=== PATIENT | male | born 1995 | race Caucasian/White ===

== ENCOUNTER 2017-08-17 02:23 | Emergency (ER) | payer SELFPAY ==
[2017-08-17] VITALS (19 sets, daily range): BP systolic 106–132; BP diastolic 50–79; PULSE 71–110; RESP 12–18; TEMP 36.8; O2SAT 94–100; BMI 24.4
[2017-08-17 03:06] LABS: Differential Indicated MANUAL DIFF; Hematocrit 42.2 % (40-54); Hemoglobin 14.8 g/dl (13.0-16.5); Mean Corp Hgb Conc 35.1 g/gl (32-36); Mean Corpuscular Volume 91.1 fL (80-94); Mean Platelet Vol. 9.6 fl (6.2-12.0); POSITIVE COUNT YES; POSITIVE DIFFERENTIAL NO; POSITIVE MORPHOLOGY YES; Platelet Count 359 K/mm3 (150-450); RBC Distribution Width CV 13.3 % (11.6-14.6); RBC Distribution Width SD 44.1 fl (35.1-43.9); Red Blood Count 4.63 M/mm3 (4.6-6.2); White Blood Count 18.8 K/mm3 (4.4-11.0)
[2017-08-17 03:19] LABS: BUN 24 mg/dL (7-18); Creatinine, Serum 0.82 mg/dL (0.70-1.30); Estimated Creatinine Clearance 132.11 ml/min; Glucose 99 mg/dL (74-106)
[2017-08-17 03:20] LABS: ALB/GLOB Ratio 1.1 RATIO (0.9-2.4); AST(SGOT) 53 U/L (15-37); Alanine Aminotransfer ALT/SGPT 74 U/L (16-61); Albumin, Serum 3.9 g/dL (3.2-5.0); Alkaline Phosphatase 62 U/L (45-117); Anion Gap 18 (5-15); BUN/Creat Ratio 29.2 RATIO (10-20); Calcium,Total 8.8 mg/dL (8.5-10.1); Chloride 104 mmol/L (98-107); EST Glomerular Filtration Rate 125 mL/min (>60); Est Glom Filt Rate - Afr Amer 151 mL/min (>60); Globulin 3.5 g/dL (2.2-4.2); Potassium 3.7 mmol/L (3.5-5.1); Protein, Total 7.4 g/dL (6.4-8.2); Sodium Level 142 mmol/L (136-145)
[2017-08-17 03:44] LABS: Lymphocyte 12 % (19-41); Metamyelocyte 6 % (0-1); Monocyte 4 % (0-10); Neutrophil-Band 1 % (0-5); Neutrophil-Segmented 77 % (47-70); Total Cells Counted 100 (MANUAL DIFF)
[2017-08-17 03:46] LABS: Absolute Lymphocyte Count 2.26 X10^3/ul (0.83-4.51); Absolute Neutrophil Count 15.8 X10^3/uL (2.0-7.7); Lymphocyte # 2.26 X10^3/ul (4.0); Neutrophil # 15.79 X10^3/uL (2.7-7.7)
[2017-08-17 03:47] LABS: Platelet Estimate ADEQUATE (ADEQ); Red Cell Morphology NORM C+C NORMAL (NORM C&C)
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
[2017-08-17 04:40] LABS: Amphetamine Urine VISTA NEGATIVE (<1000 ng/mL); Barbiturate Urine VISTA NEGATIVE (< 200 ng/mL); Benzodiazepine Urine VISTA NEGATIVE (< 200 ng/mL); Cocaine Urine VISTA NEGATIVE (< 300 ng/mL); Ecstacy Urine VISTA NEGATIVE (< 500 ng/mL); Methadone Urine VISTA NEGATIVE (< 300 ng/mL); PCP Urine VISTA NEGATIVE (< 25 ng/mL); THC Urine VISTA NEGATIVE (< 50 ng/mL); Vista UDS pH Range 6
--- NOTE | 2017-08-17 05:55 | EKG12_ITS ---
Test Reason : MENTAL HEALTH Blood Pressure : / mmHG Vent. Rate : 090 BPM Atrial Rate : 090 BPM P-R Int : 146 ms QRS Dur : 092 ms QT Int : 378 ms P-R-T Axes : 033 058 056 degrees QTc Int : 462 ms Normal sinus rhythm Normal ECG Confirmed by JOSE R MERCEDES, JENNIFER ([id number]), video tape editor ADRIEN GRACE ([id number]) on 08/21/2017 3:56:18 PM Referred By: LADY Confirmed By:JENNIFER ODELL MD
[2017-08-17 07:10] LABS: White Blood Cells 0 SEEN /hpf (0-5)
[2017-08-17 07:12] LABS: Color, Urine Yellow (Yellow); Glucose, Dipstick Normal (Normal); Ketone-Dipstick 15 mg/dl (Negative); Leukocyte Esterase-Dipstick Negative /ul (Negative); Nitrite-Dipstick Negative (Negative); Occult Blood-Urine 10 /ul (Negative); Protein-Dipstick 30 mg/dl (Negative); Urine Bilirubin Dipstick Negative (Negative); Urine Clarity Clear (Clear); Urine Urobilinogen Normal (Normal)
[2017-08-17] MEDS: predniSONE 20 MG Tablet 60 MG PO (07:14)
[2017-08-17] MEDS: DiphenhydrAMINE 25 MG Capsule PO (07:14)
[2017-08-17] MEDS: Loratadine 10 MG Tablet PO (07:14)
[2017-08-17] MEDS: Famotidine 20 MG Tablet PO (07:14)
[2017-08-17 07:21] LABS: Bacteria RARE /hpf (None Seen)
[2017-08-17 07:22] LABS: Mucous, Urine RARE /hpf (<or=2+); Red Blood Cells-Urine 0-5 SEEN /hpf (0-5); Squamous Epithelial Cells - UA 0-5 SEEN /hpf (0-5)
--- NOTE | 2017-08-17 07:49 | ED.RN ---
PER ERNST WITH CRISIS; PT DOES NOT HAVE INSURANCE; [facility]
--- NOTE | 2017-08-17 09:56 | ED.RN ---
CALLED [facility] FOR AN UPDATE ON PT
--- NOTE | 2017-08-17 11:08 | ED.RN ---
PER CHRISTINE WITH CRISIS; PT HAS BEEN REFERRED TO [facility]
--- NOTE | 2017-08-17 16:32 | ED.RN ---
[facility] CALLED [facility] ED. ERICK OSBORN RN STATED PT HAS BEEN ACCEPTED TO [facility]. RN STATES THAT HE IS CURRENTLY ON WAIT LIST AND WILL BE ABLE TO BE ADMITTED TONIGHT OR TOMORROW. PT WAS ACCEPTED BY DR. GRAHAM
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
[2017-08-18] VITALS (14 sets, daily range): BP systolic 97–117; BP diastolic 50–77; PULSE 68–113; RESP 14–20; O2SAT 95–98
--- NOTE | 2017-08-18 06:12 | ED.RN ---
BREAKFAST ORDERED FOR PATIENT.
[2017-08-18] MEDS: Famotidine 20 MG Tablet PO (06:33)
[2017-08-18] MEDS: Loratadine 10 MG Tablet PO (06:33)
[2017-08-18] MEDS: DiphenhydrAMINE 25 MG Capsule PO (06:33)
--- NOTE | 2017-08-18 11:50 | ED.RN ---
PER RUMA WITH CRISIS; WE ARE STILL WAITING ON A ROOM FOR THE PT AT [facility]
--- NOTE | 2017-08-18 12:41 | NURSING ---
THIS RN CALLED [facility] TO GET A BED STATUS UPDATE. BARBY FROM THE NURSING DEPARTMENT STATED THEY DO NOT HAVE A BED AVAILABLE YET BUT THERE IS A POSSIBILITY ONE WILL BE OPEN THIS EVENING. WILL CONTINUE TO MONITOR FOR UPDATES. PT UPDATED ON STATUS
[2017-08-19 13:00] LABS: Pathologist Review Reviewed
== END 2017-08-18 19:51 ==
PROVIDERS: Emergency Provider Emergency Medicine
DX: T14.91XA Suicide attempt, initial encounter (principal); S30.811A Abrasion of abdominal wall, initial encounter; X78.8XXA Intentional self-harm by other sharp object, initial encounter; Y93.89 Activity, other specified; Y92.9 Unspecified place or not applicable; F32.9 Major depressive disorder, single episode, unspecified; D72.829 Elevated white blood cell count, unspecified
CPT/HCPCS: 80053; 80307; 80320; 81001; 85025; 93005; 99282; G0480

== ENCOUNTER 2017-10-13 16:31 | Emergency (ER) | payer SELFPAY ==
[2017-10-13 16:38] VITALS: BP 128/83; PULSE 80; RESP 16; RESP 18; TEMP 36.8; O2SAT 98; BMI 23.6
[2017-10-13 17:06] LABS: Absolute Lymphocyte Count 1.59 X10^3/ul (0.83-4.51); Absolute Neutrophil Count 10.9 X10^3/uL (2.0-7.7); Basophil# 0.03 X10^3/uL; Basophil% 0.2 % (0-1); Eosinophil# 0.09 X10^3/uL; Eosinophils% 0.7 % (0-5); Hematocrit 41.9 % (40-54); Hemoglobin 13.8 g/dl (13.0-16.5); Lymphocyte # 1.59 X10^3/ul (4.0); Lymphocyte % 11.9 % (19-41); Mean Corp Hgb Conc 32.9 g/gl (32-36); Mean Corpuscular Hgb 30.7 pg (27.0-32.0); Mean Corpuscular Volume 93.3 fL (80-94); Mean Platelet Vol. 9.2 fl (6.2-12.0); Monocyte# 0.61 X10^3/uL; Monocyte% 4.6 % (0-10); Neutrophil # 10.85 X10^3/uL (2.7-7.7); Neutrophil % 80.9 % (47-70); Platelet Count 276 K/mm3 (150-450); RBC Distribution Width CV 13.8 % (11.6-14.6); RBC Distribution Width SD 47.1 fl (35.1-43.9); Red Blood Count 4.49 M/mm3 (4.6-6.2); White Blood Count 13.4 K/mm3 (4.4-11.0)
[2017-10-13 17:11] LABS: POSITIVE COUNT NO; POSITIVE DIFFERENTIAL NO; POSITIVE MORPHOLOGY NO
--- NOTE | 2017-10-13 17:14 | ED.VISSUMM ---
- ER Visit Summary Date of Service: 10/13/17 Chief Complaint: Self injury History of Present Illness: The patient is a 22 M who presents after 12-13 hours since he has cut his left wrist. He did not want to kill himself he wanted to see it bleed and wanted some release. He has had a history of suicidal ideation, he is not currently suicidal at this point. He does admit to depression. Physical Examination: Not appear in acute distress. Flat depressed affect. Again denies suicidal ideation. Moist mucous membranes, no obvious facial deformity No C-spine tenderness supple neck. Regular rate and rhythm without any obvious murmurs Clear lungs bilaterally speaking in full sentences without any obvious respiratory distress Abdomen soft and nontender no guarding or rebound Moves all extremities without any difficulty or pain. Skin shows an abrasion over the right thigh, there is a laceration over the left wrist, it is 3 cm but there is granulation tissue already forming. Alert oriented ?3 with no gross focal deficit Emergency Department Course and Treatment: Patient will be medically clear, his suture is too old for laceration repair. We will clean it and apply Steri-Strips. After medical clearance patient will be evaluated by mental health. Impression: Self injury behavior depression This note was generated with [employer] dictation software. It may contain incorrect words, spelling, and punctuation that were not noted in review of the chart prior to signing ED Disposition - Plan for ED Patient: Chief Complaint: Laceration Referrals: Care Physician,No Primary [Primary Care Provider] -
--- NOTE | 2017-10-13 17:20 | ED.DCSUM_ITS ---
- ER Visit Summary Date of Service: 10/13/17 Chief Complaint: Self injury History of Present Illness: The patient is a 22 M who presents after 12-13 hours since he has cut his left wrist. He did not want to kill himself he wanted to see it bleed and wanted some release. He has had a history of suicidal ideation, he is not currently suicidal at this point. He does admit to depression. Physical Examination: Not appear in acute distress. Flat depressed affect. Again denies suicidal ideation. Moist mucous membranes, no obvious facial deformity No C-spine tenderness supple neck. Regular rate and rhythm without any obvious murmurs Clear lungs bilaterally speaking in full sentences without any obvious respiratory distress Abdomen soft and nontender no guarding or rebound Moves all extremities without any difficulty or pain. Skin shows an abrasion over the right thigh, there is a laceration over the left wrist, it is 3 cm but there is granulation tissue already forming. Alert oriented ?3 with no gross focal deficit Emergency Department Course and Treatment: Patient will be medically clear, his suture is too old for laceration repair. We will clean it and apply Steri- Strips. After medical clearance patient will be evaluated by mental health. Impression: Self injury behavior depression This note was generated with [employer] dictation software. It may contain incorrect words, spelling, and punctuation that were not noted in review of the chart prior to signing ED Disposition - Plan for ED Patient: Chief Complaint: Laceration Referrals: Care Physician,No Primary [Primary Care Provider] -
[2017-10-13 17:23] LABS: Anion Gap 7 (5-15); BUN 5 mg/dL (7-18); BUN/Creat Ratio 6.2 RATIO (10-20); Calcium,Total 8.8 mg/dL (8.5-10.1); Chloride 105 mmol/L (98-107); EST Glomerular Filtration Rate 128 mL/min (>60); Est Glom Filt Rate - Afr Amer 155 mL/min (>60); Glucose 76 mg/dL (74-106); Potassium 3.9 mmol/L (3.5-5.1); Sodium Level 140 mmol/L (136-145)
[2017-10-13 17:38] LABS: Amphetamine Urine VISTA NEGATIVE (<1000 ng/mL); Barbiturate Urine VISTA NEGATIVE (< 200 ng/mL); Benzodiazepine Urine VISTA NEGATIVE (< 200 ng/mL); Cocaine Urine VISTA NEGATIVE (< 300 ng/mL); Ecstacy Urine VISTA NEGATIVE (< 500 ng/mL); Methadone Urine VISTA NEGATIVE (< 300 ng/mL); PCP Urine VISTA NEGATIVE (< 25 ng/mL); THC Urine VISTA NEGATIVE (< 50 ng/mL); Vista UDS pH Range 6
[2017-10-13 18:18] VITALS: PULSE 85; RESP 16; O2SAT 100
--- NOTE | 2017-10-13 18:18 | NURSING ---
CALLED CRISIS ABOUT PATIENT BEING READY TO BE SEEN. ANSWERING SERVICE WILL LET RUMA KNOW
[2017-10-13 20:25] VITALS: BP 113/74; PULSE 84; RESP 14; O2SAT 98
--- NOTE | 2017-10-13 20:29 | ED.DEP ---
ED Disposition - Plan for ED Patient: Disposition: Home or Assisted Living Chief Complaint: Laceration Additional Instructions: Follow-up with psychiatry as instructed. Do not cut yourself anymore. If you have suicidal ideations return to the emergency department right away
[2017-10-13 20:57] VITALS: BP 120/76; PULSE 86; RESP 17; O2SAT 97
== END 2017-10-13 20:59 | disposition home or self-care (01) ==
PROVIDERS: Emergency Provider Emergency Medicine
DX: S61.512A Laceration without foreign body of left wrist, initial encounter (principal); X78.9XXA Intentional self-harm by unspecified sharp object, initial encounter; Y93.89 Activity, other specified; Y92.9 Unspecified place or not applicable; F32.9 Major depressive disorder, single episode, unspecified; Z79.899 Other long term (current) drug therapy
CPT/HCPCS: 80048; 80307; 80320; 85025; 99284; G0480

== ENCOUNTER 2019-01-17 18:32 | Emergency (ER) | payer MEDICAID, SELFPAY ==
[2019-01-17 18:33] VITALS: BP 128/85; PULSE 62; RESP 16; TEMP 36.4; O2SAT 100; BMI 25.0
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
[2019-01-17 19:36] LABS: Amphetamine Urine VISTA NEGATIVE (<1000 ng/mL); Barbiturate Urine VISTA NEGATIVE (< 200 ng/mL); Benzodiazepine Urine VISTA NEGATIVE (< 200 ng/mL); Cocaine Urine VISTA NEGATIVE (< 300 ng/mL); Ecstacy Urine VISTA NEGATIVE (< 500 ng/mL); Methadone Urine VISTA NEGATIVE (< 300 ng/mL); PCP Urine VISTA NEGATIVE (< 25 ng/mL); THC Urine VISTA NEGATIVE (< 50 ng/mL); Vista UDS pH Range 6
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
[2019-01-17 20:25] LABS: Absolute Lymphocyte Count 1.51 X10^3/uL (0.83-4.51); Absolute Neutrophil Count 9.7 X10^3/uL (2.0-7.7); Basophil# 0.06 X10^3/uL; Basophil% 0.5 % (0-1); Eosinophil# 0.11 X10^3/uL; Eosinophils% 0.9 % (0-5); Hematocrit 48.3 % (40-54); Hemoglobin 15.9 g/dL (13.0-16.5); Lymphocyte # 1.51 X10^3/ul (4.0); Lymphocyte % 12.7 % (19-41); Mean Corp Hgb Conc 32.9 g/dL (32-36); Mean Corpuscular Hgb 30.5 pg (27.0-32.0); Mean Corpuscular Volume 92.7 fL (80-94); Mean Platelet Vol. 9.9 fl (6.2-12.0); Monocyte# 0.46 X10^3/uL; Monocyte% 3.9 % (0-10); NRBC Flagged by Analyzer 0 % (0-5); Neutrophil # 9.67 X10^3/uL (2.7-7.7); Neutrophil % 81.6 % (47-70); Platelet Count 317 K/mm3 (150-450); RBC Distribution Width CV 13.4 % (11.6-14.6); Red Blood Count 5.21 M/mm3 (4.6-6.2); White Blood Count 11.9 K/mm3 (4.4-11.0)
[2019-01-17 20:45] LABS: ALB/GLOB Ratio 1.1 RATIO (0.9-2.4); AST(SGOT) 13 U/L (15-37); Alanine Aminotransfer ALT/SGPT 18 U/L (16-61); Albumin, Serum 4.4 g/dL (3.2-5.0); Alkaline Phosphatase 113 U/L (45-117); Anion Gap 5 (5-15); BUN 9 mg/dL (7-18); BUN/Creat Ratio 11.4 RATIO (10-20); Chloride 106 mmol/L (98-107); Creatinine, Serum 0.79 mg/dL (0.70-1.30); EST Glomerular Filtration Rate 129 mL/min (>60); Est Glom Filt Rate - Afr Amer 156 mL/min (>60); Estimated Creatinine Clearance 135.97 ml/min; Globulin 3.9 g/dL (2.2-4.2); Glucose 86 mg/dL (74-106); Protein, Total 8.3 g/dL (6.4-8.2); Sodium Level 140 mmol/L (136-145)
[2019-01-17 20:51] LABS: Alcohol, Blood (Medical)-Serum < 3.0 mg/dL
--- NOTE | 2019-01-17 20:59 | CM.ED ---
SOCIAL WORK DISCUSSED WITH DR. SEGAL, PATIENT MEDICALLY CLEARED. REFERRAL FAXED AND CALLED TO [facility]. AWAITING ACCEPTANCE. Tera CHENG, AGRICULTURE DEPARTMENT CHAIR, GASOLINE PLANT OPERATOR.
[2019-01-17 21:06] VITALS: RESP 18
--- NOTE | 2019-01-17 21:30 | CM.ED ---
SOCIAL WORK RECEIVED CALL FROM ERIN AT [facility]. PATIENT ACCEPTED BY DR. OCHOA. REPORT TO BE CALLED TO . NURSING, PATIENT AND DR. SEGAL UPDATED. PINK SLIP ON CHART. Tera CHENG, VARNISH MIXER, DOCK ASSOCIATE.
[2019-01-17 22:22] VITALS: BP 124/72; PULSE 75; RESP 18; O2SAT 99
[2019-01-17 22:30] VITALS: BP 124/72
== END 2019-01-17 22:52 ==
PROVIDERS: Emergency Provider Emergency Medicine; Family Provider Family Medicine; PCP Family Medicine
DX: R45.851 Suicidal ideations (principal); F32.9 Major depressive disorder, single episode, unspecified; Z87.891 Personal history of nicotine dependence
CPT/HCPCS: 80053; 80307; 80320; 85025; 99284; G0480

== ENCOUNTER 2020-02-05 19:55 | Emergency (ER) | payer MEDICARE, MEDICAID, SELFPAY ==
[2020-02-05 19:56] VITALS: BP 131/85; PULSE 88; RESP 16; TEMP 35.9; O2SAT 97; BMI 25.0
--- NOTE | 2020-02-05 20:33 | ED.DCSUM_ITS ---
- ER Visit Summary Date of Service: 02/05/20 Chief Complaint: Laceration History of Present Illness: The patient is a [address] Joyce. He is right-hand dominant. He reports that he cut his left hand tonight while cutting a cucumber. He denies any paresthesias distally. He denies any pain. His tetanus is up-to-date. Physical Examination: Vitals: Stable. Afebrile. General: Well-nourished and well-developed. Head: Normocephalic atraumatic. Neck: Supple, no lymphadenopathy. No JVD. Nontender. Cardiovascular: Regular rate and rhythm. No murmurs. Respiratory: No respiratory distress. Clear to auscultation bilaterally. Abdominal: Soft, nontender, nondistended, normal bowel sounds. No guarding, rebound, or peritoneal signs. Back: Nontender. Extremities: 2 cm laceration on the back of his left hand over the mid first metacarpal. He is neuro vas intact distal this. This does not extend the tendon. He is able to extend the MCP and PIP joints without difficulty. He has normal sensation light touch less than 2-second cap refill. Skin: Normal color, no rash. Neurologic: Alert and oriented ?3. Cranial nerves II through XII are intact. Normal strength and sensation. Psych: Normal affect. Emergency Department Course and Treatment: Patient had his wound anesthetized and repaired. He tolerated this well. Treatment Plan: Patient be discharged instructions follow-up Dr. Joyce in 10 to 14 days for suture removal. Return to the emergency department for any worsening symptoms. Disposition: To home in improved and stable condition. Impression: 1. Laceration left hand, 2 cm, repaired. Procedure note: Wound was cleansed with chlorhexidine soap. Anesthetized with 1% lidocaine without epinephrine. Copiously irrigated with normal saline. Wound was explored there is no foreign material present. It was closed with 4 simple interrupted 4- 0 ethilon sutures. The patient tolerated it well. This note was generated with [employer] dictation software. It may contain incorrect words, spelling, and punctuation that were not noted in review of the chart prior to signing ED Disposition - Plan for ED Patient: Instructions: ED Laceration, Hand: All Closures Referrals: Abraham Babb MD [Primary Care Provider] - 10-14 Days suture removal
[2020-02-05] MEDS: Lidocaine 1% (20 ml mdv) 20 ML Vial INFILT (21:26)
[2020-02-05 21:27] VITALS: RESP 17
== END 2020-02-05 21:28 | disposition home or self-care (01) ==
LOC: ED 20:56
PROVIDERS: Emergency Provider Emergency Medicine; PCP Family Medicine
DX: S61.412A Laceration without foreign body of left hand, initial encounter (principal); F17.200 Nicotine dependence, unspecified, uncomplicated; W26.9XXA Contact with unspecified sharp object(s), initial encounter
CPT/HCPCS: 12001; 99283

== ENCOUNTER 2020-06-17 11:53 | Emergency (ER) | payer MEDICARE, MEDICAID, SELFPAY ==
[2020-06-17 11:54] VITALS: BP 124/69; PULSE 95; RESP 18; TEMP 36.4; O2SAT 98; BMI 29.5
--- NOTE | 2020-06-17 12:11 | RAD_ITS ---
STUDY: X-RAY CHEST REASON FOR EXAM: Male, 24 years old. Chest pain TECHNIQUE: Single AP portable view of the chest. COMPARISON: None. FINDINGS: EKG electrodes are seen. The lungs are clear and expanded. There is no demonstrated pleural abnormality. Normal size heart. Normal mediastinum and lee. Normal visualized pulmonary arteries. Normal visualized aortic arch and descending thoracic aorta. Normal visualized thoracic spine. Normal visualized ribs, clavicles, and shoulders. There is no demonstrated abnormality of the visualized soft tissue structures of the upper abdomen. RAD/Chest 1 View (Portable) IMPRESSION: Normal x-ray examination of the chest. Electronically Signed: Jose Lehman MD at 12:33 EDT , Service support ,
--- NOTE | 2020-06-17 12:11 | EKG12_ITS ---
Test Reason : CHEST PAIN Blood Pressure : / mmHG Vent. Rate : 079 BPM Atrial Rate : 079 BPM P-R Int : 144 ms QRS Dur : 096 ms QT Int : 394 ms P-R-T Axes : 043 059 058 degrees QTc Int : 451 ms Normal sinus rhythm Normal ECG Confirmed by NADER MERCEDES, TARYN ([id number]), editor farm journal KENDALL NESBITT ([id number]) on 06/21/2020 9:16:27 AM Referred By: YUE Confirmed By:ERIC DOE MD
[2020-06-17 12:32] LABS: Absolute Lymphocyte Count 1.65 X10^3/uL (0.83-4.51); Absolute Neutrophil Count 8.5 X10^3/uL (2.0-7.7); Basophil# 0.05 X10^3/uL; Basophil% 0.5 % (0-1); Eosinophil# 0.18 X10^3/uL; Eosinophils% 1.6 % (0-5); Hematocrit 40.4 % (40-54); Hemoglobin 13.7 g/dL (13.0-16.5); Lymphocyte # 1.65 X10^3/ul (0.83-4.51); Lymphocyte % 15.1 % (19-41); Mean Corp Hgb Conc 33.9 g/dL (32-36); Mean Corpuscular Hgb 33.6 pg (27.0-32.0); Mean Platelet Vol. 10.1 fl (6.2-12.0); Monocyte# 0.46 X10^3/uL; Monocyte% 4.2 % (0-10); NRBC Flagged by Analyzer 0 % (0-5); Neutrophil # 8.47 X10^3/uL (2.7-7.7); Neutrophil % 77.7 % (47-70); Platelet Count 226 K/mm3 (150-450); RBC Distribution Width CV 12.8 % (11.6-14.6); RBC Distribution Width SD 46.3 fl (35.1-43.9); Red Blood Count 4.08 M/mm3 (4.6-6.2); White Blood Count 10.9 K/mm3 (4.4-11.0)
[2020-06-17 12:55] LABS: Anion Gap 5 (5-15); BUN 6 mg/dL (7-18); BUN/Creat Ratio 7.8 RATIO (10-20); Calcium,Total 8.9 mg/dL (8.5-10.1); Chloride 107 mmol/L (98-107); Creatinine, Serum 0.77 mg/dL (0.70-1.30); EST Glomerular Filtration Rate 131 mL/min (>60); Est Glom Filt Rate - Afr Amer 159 mL/min (>60); Glucose 99 mg/dL (74-106); Potassium 3.8 mmol/L (3.5-5.1); Sodium Level 138 mmol/L (136-145)
[2020-06-17 12:58] LABS: D-Dimer Quantitative (DVT/PE) 0.34 FEU/ug/m (0.27-0.49)
[2020-06-17 13:10] VITALS: O2SAT 100
--- NOTE | 2020-06-17 13:34 | ED.VISSUMM ---
- ER Visit Summary Date of Service: 06/17/20 Chief Complaint: Palpitations History of Present Illness: The patient is a [address] Joyce. He reports he has palpitations began approximately 3 weeks ago. States has been constant for the past 2 weeks. It is a fast heart rate. He complains of an aching chest pain is 4-10 at worst and 1 out of 10 currently. Is worsened by breathing or pressure. Is relieved by sleep. Does report he had mild shortness of breath sometimes. Physical Examination: Vitals: Stable. Afebrile. General: Well-nourished and well-developed. Head: Normocephalic atraumatic. Neck: Supple, no lymphadenopathy. No JVD. Nontender. Cardiovascular: Regular rate and rhythm. No murmurs. Respiratory: No respiratory distress. Clear to auscultation bilaterally. Abdominal: Soft, nontender, nondistended, normal bowel sounds. No guarding, rebound, or peritoneal signs. Back: Nontender. Extremities: Nontender, no edema. Skin: Normal color, no rash. Neurologic: Alert and oriented ?3. Cranial nerves II through XII are intact. Normal strength and sensation. Psych: Normal affect. Test Results: EKG is sinus at [address] changes. Troponin is negative. D-dimer is negative. Chem-7 is normal. CBC shows second neutrophils 78 lymphocytes 15. TSH is 1.30. Clinical Impression(s) from Imaging Studies Chest X-Ray 06/17/20 12:11 IMPRESSION: Normal x-ray examination of the chest. Electronically Signed: Jose Lehman MD at 12:33 EDT , Service support , Emergency Department Course and Treatment: Patient is resting comfortably without complaint. He is remained in sinus rhythm while here. Treatment Plan: Patient be discharged instructions push fluids. Follow-up his primary care physician in 1 week for another exam. Return to the emergency department for any worsening symptoms. Disposition: To home in improved and stable condition. Impression: 1. Palpitations. This note was generated with [employer] software. It may contain incorrect words, spelling, and punctuation that were not noted in review of the chart prior to signing ED Disposition - Plan for ED Patient: Instructions: ED Palpitations Referrals: Johnny Bear MD [Primary Care Provider] - 1 Week
[2020-06-17 13:51] VITALS: RESP 17
== END 2020-06-17 13:52 | disposition home or self-care (01) ==
LOC: ED 12:24
PROVIDERS: Emergency Provider Emergency Medicine; PCP Family Medicine
DX: R00.2 Palpitations (principal); F17.200 Nicotine dependence, unspecified, uncomplicated
CPT/HCPCS: 71045; 80048; 84443; 84484; 85025; 85379; 93005; 99284

== ENCOUNTER 2020-12-27 14:31 | Emergency (ER) | payer MEDICARE, MEDICAID, SELFPAY ==
[2020-12-27 14:32] VITALS: BP 123/82; PULSE 109; RESP 16; TEMP 36.3; O2SAT 98; BMI 30.9
--- NOTE | 2020-12-27 16:11 | ED.VIS.GI ---
HPI HPI - GI History of Present Illness Chief Complaint: Constipation Narrative Narrative: 25-year-old male who identifies as a female presenting with constipation for 1 week. Patient states that yesterday she tried to something similar to Gas-X without relief of her constipation. Patient does not have a history of constipation. She does admit to some mild abdominal cramping. She is not had a fever or chills. No history of bowel obstruction. She does state that she had 1 surgery distantly to have a tumor removed on her abdomen but has never had anything specifically on her bowels. She does not have nausea or vomiting. Patient's diet admittedly is of spaghetti, chili, sandwiches. She does not eat a lot of high-fiber foods. PFSH PFS Medical History Depression Home Medications Estradiol 06/17/20 [History Last Taken Unknown] Spironolactone 06/17/20 [History Last Taken Unknown] Allergy/AdvReac Type Severity Reaction Status Date / Time prednisone AdvReac NEEDS Verified 12/27/20 14:34 FOLLOW-UP Social History Smoking Status: Current every day smoker tobacco type: cigarettes ROS ROS ED Constitutional Constitutional ED: Denies chills, fever(s) or sweats Eyes Eyes: Denies blurry vision or change in vision ENT ENT ED: Denies ear pain, rhinorrhea or sore throat Cardiovascular Cardiovascular: Denies chest pain, palpitations or racing heartbeat Respiratory/Chest Respiratory/Chest: Denies cough, dyspnea or sputum Gastrointestinal Gastrointestinal: Reports abdominal pain and constipation; Denies diarrhea or vomiting Genitourinary Genitourinary ED: Denies dysuria, hematuria or urinary frequency Musculoskeletal Musculoskeletal: Denies arthralgias, myalgias or neck pain Integumentary Denies abscess, Abrasions or rash Neurologic Neurologic: Denies headache(s), paresthesias or weakness Psychiatric Psychiatric: Denies anxiety, depression, suicidal ideation or suicidal thoughts Endocrine Endocrinology: Denies polydipsia or polyuria EXAM Physical Exam Const Vital Signs: 12/27/20 14:32 Temperature 97.4 F L Temperature Source Temporal Pulse Rate 109 H Respiratory Rate 16 Blood Pressure 123/82 H Blood Pressure Mean 95 Pulse Ox 98 Oxygen Delivery Method Room Air Positive well nourished General Appearance ED: Negative for pallor HEENT Reports normocephalic, head/scalp atraumatic and moist mucous membranes Eyes PERRL and EOMs intact bilaterally Neck no lymphadenopathy and supple Chest Wall inspection of chest normal and palpation of chest normal Resp normal respiratory effort and clear to auscultation bilaterally Auscultation: Negative for rales, rhonchi or wheezes Cardio regular rate and regular rhythm GI normal to inspection, nondistended, normoactive bowel sounds and non-distended Auscultation: normoactive bowel sounds Palpation: soft Narrative: Deferred Back/Spine no CVA tenderness Extremity normal to inspection General Extremety ED: Yes edema and tenderness General Extremity: edema Neuro oriented x3 and CN's II-XII intact bilaterally Sensorium / Orientation: alert Motor Exam: strength 5/5 throughout Psych mental status grossly normal Attitude: No agitated Skin no rashes or lesions noted and no wounds General Skin Exam: Negative for jaundice or pallor MDM MDM MDM Narrative Medical decision making narrative: Patient's abdominal exam is benign. I think is reasonable to start her on laxatives versus magnesium citrate. She chose to have magnesium citrate. I did provide this for her. She is counseled to drink half of the bottle and if no bowel movement within 4 hours to drink the second half. He is counseled that if she has any new or worsening symptoms to return to the ER. Impression: 1. Constipation Discharge Plan Triage Chief Complaint: Constipation ED Provider: Jovani Panda Dx/Rx/DC Orders Instructions: ED Constipation (Adult) Prescriptions: No Action Estradiol RF: 0 Spironolactone RF: 0 Primary Care Provider: Johnny Bear Referrals: Johnny Bear MD [Primary Care Provider] - Disposition Disposition: Home, Self Care Discharge Date/Time: 12/27/20 15:39
== END 2020-12-27 15:39 | disposition home or self-care (01) ==
PROVIDERS: Emergency Provider Student in an Organized Health Care Education/Training Program; PCP Family Medicine
DX: K59.00 Constipation, unspecified (principal); F17.210 Nicotine dependence, cigarettes, uncomplicated
CPT/HCPCS: 99283

== ENCOUNTER 2022-03-28 07:44 | Emergency (ER) | payer MEDICARE, MEDICAID, SELFPAY ==
[2022-03-28 07:45] VITALS: BP 128/82; PULSE 111; RESP 14; TEMP 36.8; O2SAT 98; BMI 31.2
--- NOTE | 2022-03-28 08:00 | EDS_ITS ---
HPI History of Present Illness Chief Complaint: Ear Problem Informant: patient Onset/Context/Timing Onset: Today Context: Gradual Onset Current Severity: Mild Maximum Severity: Moderate Narrative Narrative: Patient present secondary to left ear pain. Patient reports pain started around midnight and is progressed throughout the morning. Some drainage from the left ear has been noted. Patient has had recent URI symptoms but no fever appreciated. Patient does not have history of frequent ear infections. [facility] Medical History Depression Home Medications Estradiol 06/17/20 [History Last Taken Unknown] Spironolactone 06/17/20 [History Last Taken Unknown] amoxicillin 875 mg-potassium clavulanate 125 mg tablet 1 tab PO BID #20 tabs 03/28/22 [Rx Last Taken Unknown] Allergy/AdvReac Type Severity Reaction Status Date / Time prednisone AdvReac NEEDS Verified 03/28/22 07:45 FOLLOW-UP Social History Smoking Status: Current every day smoker tobacco type: cigarettes ROS ROS ED Constitutional Constitutional ED: Denies chills or fever(s) Eyes Eyes: Denies change in vision or discharge from eye(s) ENT ENT ED: Reports ear pain left and rhinorrhea; Denies discharge from eye(s) or sore throat Cardiovascular Cardiovascular: Denies chest pain or palpitations Respiratory/Chest Respiratory/Chest: Denies cough or dyspnea Gastrointestinal Gastrointestinal: Denies abdominal pain, diarrhea, nausea or vomiting Genitourinary Genitourinary ED: Denies dysuria Musculoskeletal Musculoskeletal: Denies back pain or extremity pain Integumentary Denies Abrasions or rash Neurologic Neurologic: Denies headache(s) or weakness Psychiatric Psychiatric: Denies anxiety or depression Allergic/Immunologic Allergic/Immunologic ED: Denies lip swelling or urticaria EXAM Physical Exam Const Vital Signs: 03/28/22 07:45 Temperature 98.2 F Temperature Source Temporal Pulse Rate 111 H Respiratory Rate 14 Blood Pressure 128/82 H Blood Pressure Mean 97 Pulse Ox 98 Oxygen Delivery Method Room Air Positive well nourished and well developed General Appearance ED: well developed HEENT Reports moist mucous membranes HEENT Narrative: Right TM clear. Left ear erythematous and bulging. Eyes PERRL and EOMs intact bilaterally Neck no lymphadenopathy Chest Wall inspection of chest normal Resp normal respiratory effort and clear to auscultation bilaterally Cardio regular rate and regular rhythm GI normal to inspection, nondistended, normoactive bowel sounds Extremity normal to inspection Neuro oriented x3 and no sensory deficits noted Motor Exam: strength 5/5 throughout Psych mental status grossly normal MDM MDM MDM Narrative Medical decision making narrative: Patient has evidence of otitis media on the left. Initial dose of Augmentin will be given here and prescription sent to [place]. Return instructions provided. Discharge Plan Triage Chief Complaint: Ear Problem ED Provider: Farida Gardner Dx/Rx/DC Orders Clinical Impression: Otitis media Instructions: ED Otitis Media Antibiotic ... Prescriptions: New amoxicillin-pot clavulanate 875-125 mg tablet 1 tab PO BID Qty: 20 0RF No Action Estradiol Spironolactone Primary Care Provider: Johnny Bear Referrals: Johnny Bear MD [Primary Care Provider] - 1-2 Weeks Disposition Disposition: Home, Self Care
[2022-03-28] MEDS: Amox/Clavulanate 875 MG Tablet PO (08:22)
== END 2022-03-28 08:24 | disposition home or self-care (01) ==
LOC: ED 08:16
PROVIDERS: Emergency Provider Emergency Medicine; Visit Provider Emergency Medicine
DX: H66.92 Otitis media, unspecified, left ear (principal); F17.210 Nicotine dependence, cigarettes, uncomplicated
CPT/HCPCS: 99283

== ENCOUNTER 2022-04-26 09:29 | Emergency (ER) | payer MEDICARE, MEDICAID, SELFPAY ==
[2022-04-26 09:30] VITALS: BP 160/97; PULSE 93; RESP 16; TEMP 35.7; O2SAT 99; BMI 32.1
--- NOTE | 2022-04-26 09:55 | RAD_ITS ---
STUDY: X-RAY CHEST REASON FOR EXAM: Male, 26 years old. Cough TECHNIQUE: PA and lateral views of the chest. COMPARISON: Comparison is made with prior study dated 06/17/2020. FINDINGS: The lungs are clear and expanded. There is no demonstrated pleural abnormality. Normal size heart. Normal mediastinum and lee. Normal visualized pulmonary arteries. Normal visualized aortic arch and descending thoracic aorta. Normal visualized thoracic spine. Normal visualized ribs, clavicles, and shoulders. There is no demonstrated abnormality of the visualized soft tissue structures of the upper abdomen. RAD/Chest PA and Lateral IMPRESSION: Normal x-ray examination of the chest. Electronically Signed: Jose Lehman MD at 11:29 EST ,
[2022-04-26 10:11] VITALS: PULSE 85; RESP 20
[2022-04-26] MEDS: Ipratropium/Albuterol Sulfate 3 ML AMPUL.NEB INHALATION (10:11)
[2022-04-26 10:17] LABS: Absolute Lymphocyte Count 2.39 X10^3/uL (0.83-4.51); Absolute Neutrophil Count 13.9 X10^3/uL (2.0-7.7); Basophil# 0.05 X10^3/uL; Basophil% 0.3 % (0-1); Eosinophil# 0.27 X10^3/uL; Eosinophils% 1.5 % (0-5); Hematocrit 42.9 % (40-54); Hemoglobin 14.5 g/dL (13.0-16.5); Lymphocyte # 2.39 X10^3/ul (0.83-4.51); Lymphocyte % 13.5 % (19-41); Mean Corp Hgb Conc 33.8 g/dL (32-36); Mean Corpuscular Hgb 31.7 pg (27.0-32.0); Mean Corpuscular Volume 93.9 fL (80-94); Mean Platelet Vol. 9.6 fl (6.2-12.0); Monocyte# 0.95 X10^3/uL; Monocyte% 5.4 % (0-10); NRBC Flagged by Analyzer 0 % (0-5); Neutrophil % 78.5 % (47-70); Platelet Count 224 K/mm3 (150-450); RBC Distribution Width CV 13.3 % (11.6-14.6); RBC Distribution Width SD 45.8 fl (35.1-43.9); Red Blood Count 4.57 M/mm3 (4.6-6.2); White Blood Count 17.7 K/mm3 (4.4-11.0)
[2022-04-26 10:29] LABS: Anion Gap 6 (5-15); BUN 7 mg/dL (7-18); BUN/Creat Ratio 8.3 RATIO (10-20); Calcium,Total 9.1 mg/dL (8.5-10.1); Chloride 108 mmol/L (98-107); Creatinine, Serum 0.84 mg/dL (0.70-1.30); EST Glomerular Filtration Rate 117 mL/min (>60); Est Glom Filt Rate - Afr Amer 141 mL/min (>60); Estimated Creatinine Clearance 124.59 ml/min; Glucose 94 mg/dL (74-106); Potassium 3.8 mmol/L (3.5-5.1); Sodium Level 140 mmol/L (136-145)
[2022-04-26 10:40] LABS: D-Dimer Quantitative (DVT/PE) < 0.27 FEU/ug/m (0.27-0.49)
--- NOTE | 2022-04-26 11:03 | EX.ED.DYSGE1 ---
HPI History of Present Illness Chief Complaint: Cough Informant: patient Onset/Context/Timing Onset: Weeks (1) Context: Gradual Onset Timing: Continuous Quality: Dyspnea with exertion Location: Chest Worsened by: Pressure on his chest Relieved by: Nothing Narrative Narrative: Patient presents with cough and shortness of breath that has been getting worse over the past week. Patient states his breathing is worse with any exertion. Patient states that he became short of breath walking from his car to the emergency department today. Patient states his symptoms are worse whenever there is pressure applied to his chest. Patient states nothing seems to help with it. Patient denies any fevers or chills. Patient denies any nausea or vomiting. Patient denies any diaphoresis. Patient admits to some recent rhinorrhea and sore throat. Patient is also admits to a mild cough. Patient denies any sputum production. [facility] Medical History Depression Home Medications Estradiol 06/17/20 [History Last Taken Unknown] Spironolactone 06/17/20 [History Last Taken Unknown] amoxicillin 875 mg-potassium clavulanate 125 mg tablet 1 tab PO BID #20 tabs 03/28/22 [Rx Last Taken Unknown] albuterol sulfate 90 mcg/actuation aerosol inhaler (Ventolin HFA) 1 - 2 puff inhalation Q4H PRN PRN Wheezing ##1 04/26/22 [Rx Last Taken Unknown] Allergy/AdvReac Type Severity Reaction Status Date / Time prednisone AdvReac NEEDS Verified 03/28/22 07:45 FOLLOW-UP Social History Smoking Status: Current every day smoker tobacco type: cigarettes ROS ROS ED Constitutional Constitutional ED: Denies chills or fever(s) Eyes Eyes: Denies blurry vision or change in vision ENT ENT ED: Reports rhinorrhea and sore throat Cardiovascular Cardiovascular: Denies chest pain or palpitations Respiratory/Chest Respiratory/Chest: Reports cough and dyspnea Gastrointestinal Gastrointestinal: Denies nausea or vomiting Genitourinary Genitourinary ED: Denies dysuria or hematuria Musculoskeletal Musculoskeletal: Denies back pain or neck pain Integumentary Denies abscess or rash Neurologic Neurologic: Denies headache(s) or weakness Allergic/Immunologic Allergic/Immunologic ED: Denies mouth swelling or urticaria EXAM Physical Exam Const Vital Signs: 04/26/22 09:30 04/26/22 10:11 04/26/22 10:46 Temperature 96.2 F L Temperature Source Temporal Pulse Rate 93 85 Respiratory Rate 16 20 H Respiratory Effort Normal Non-Labored Respiratory Depth Normal Respiratory Pattern Normal Normal Blood Pressure 160/97 H Blood Pressure Mean 118 Pulse Ox 99 Oxygen Delivery Method Room Air Positive well nourished and well developed General Appearance ED: well developed and NAD HEENT Reports moist mucous membranes Neck supple and no JVD Resp normal respiratory effort Auscultation: rhonchi throughout Cardio regular rate, regular rhythm and no murmurs GI normal to inspection, nondistended, normoactive bowel sounds and non-tender Palpation: soft Extremity normal to inspection General Extremety ED: Negative for edema or tenderness General Extremity: Negative for edema Neuro oriented x3, CN's II-XII intact bilaterally and no sensory deficits noted Sensorium / Orientation: alert Motor Exam: strength 5/5 throughout Psych mental status grossly normal Skin no rashes or lesions noted MDM MDM MDM Narrative Medical decision making narrative: Differential diagnosis includes pulmonary embolism, pneumonia, cardiac dysrhythmia, cardiac ischemia, and reactive airway disease. CBC will be obtained to assess for leukocytosis and anemia. Basic metabolic profile will be obtained to assess for electrolyte abnormality and renal function. D-dimer will be obtained to assess for pulmonary embolism. Chest x-ray will be obtained to assess for pneumonia. COVID-19 rapid antigen will be obtained to assess for COVID infection. Influenza A and influenza B antigens will be obtained to assess for influenza infection. Lab Data Lab results narrative: CBC was reviewed and showed a mild leukocytosis of 17.7. (Patient states he has a remote history of chronic lymphocytic leukemia.) Basic metabolic profile was reviewed and was within normal limits. D-dimer was reviewed and was negative. COVID-19 rapid antigen was reviewed and was negative. Influenza A and influenza B rapid antigens were reviewed and were negative. Labs: Laboratory Results - last 24 hr 04/26/22 04/26/22 04/26/22 10:06 10:06 10:06 WBC 17.7 H RBC 4.57 L Hgb 14.5 Hct 42.9 MCV 93.9 MCH 31.7 MCHC 33.8 RDW Std Deviation 45.8 H RDW Coeff of Naeem 13.3 Plt Count 224 MPV 9.6 Immature Gran % (Auto) 0.800 Neut % (Auto) 78.5 H Lymph % (Auto) 13.5 L [place] % (Auto) 5.4 Eos % (Auto) 1.5 Baso % (Auto) 0.3 Absolute Neuts (auto) 13.9 H Absolute Lymphs (auto) 2.39 Nucleated RBC % 0 D-Dimer Quant (PE/DVT) < 0.27 L Sodium 140 Potassium 3.8 Chloride 108 H Carbon Dioxide 26.0 Anion Gap 6 BUN 7 Creatinine 0.84 Estim Creat Clear Calc 124.59 Est GFR (MDRD) Af Amer 141 Est GFR (MDRD) Non-Af 117 BUN/Creatinine Ratio 8.3 L Glucose 94 Calcium 9.1 Radiography Chest X-Ray - ED: 2 View, Read by ED Physician, Read by Radiologist, Normal and No Acute Disease Diagnostic Testing: Clinical Impression(s) from Imaging Studies Chest X-Ray 04/26/22 09:55 IMPRESSION: Normal x-ray examination of the chest. Electronically Signed: Jose Lehman MD at 11:29 EST , PA and lateral chest x-ray was obtained. There are 2 views. On my independent interpretation, lung krishnan are clear. There is normal cardiac silhouette. Bony thorax is normal. There is no acute process noted. Radiologist also interpreted the x-ray and agrees. Treatment and Re-Evaluation Narrative: Patient was advised of findings. Patient was advised that this is most likely a viral upper respiratory infection. Patient was given a prescription for an albuterol inhaler. Patient was instructed to take this as needed for any shortness of breath. Patient was instructed to follow-up with his primary care physician in 5 to 7 days. Patient understood and was agreeable with the plan. All questions were answered. Discharge Plan Triage Chief Complaint: Cough ED Provider: Dewey Almaraz Dx/Rx/DC Orders Clinical Impression: Viral upper respiratory tract infection with cough, Depression, major, Obesity (BMI 30.0-34.9) Instructions: ED URI, Viral, No Abx (Adult) Prescriptions: New albuterol sulfate [Ventolin HFA] 90 mcg/actuation HFA aerosol inhaler 1 - 2 puff inhalation Q4H PRN PRN (Reason: Wheezing) Qty: 1 0RF No Action Estradiol Spironolactone amoxicillin-pot clavulanate 875-125 mg tablet 1 tab PO BID Qty: 20 0RF Primary Care Provider: Johnny Bear Referrals: Johnny Bear MD [Primary Care Provider] - 5-7 Days Disposition Disposition: Home, Self Care
[2022-04-26 13:00] VITALS: BP 124/66; PULSE 59; RESP 16; O2SAT 97
== END 2022-04-26 13:01 | disposition home or self-care (01) ==
PROVIDERS: Emergency Provider Emergency Medicine; PCP Family Medicine; Visit Provider Emergency Medicine
DX: J06.9 Acute upper respiratory infection, unspecified (principal); F17.210 Nicotine dependence, cigarettes, uncomplicated; F32.9 Major depressive disorder, single episode, unspecified; E66.9 Obesity, unspecified
CPT/HCPCS: 71046; 80048; 85025; 85379; 87428; 94640; 99283; A4216

== ENCOUNTER 2022-08-20 02:53 | Emergency (ER) | payer MEDICARE, MEDICAID, SELFPAY ==
[2022-08-20 02:54] VITALS: BP 142/98; PULSE 99; RESP 15; TEMP 36.7; O2SAT 97
--- NOTE | 2022-08-20 03:40 | EDS_ITS ---
HPI History of Present Illness Chief Complaint: Other, Pain/Inj Informant: patient Narrative Narrative: [id number] male with increased swelling base of nail right ring finger over 2 days. Denies biting his nails. Does trim his nails short. No history o f similar. No fevers. No drainage. Tender to palpation. Denies trauma. Prior similar symptoms: No PFSH PFSH Medical History Depression Home Medications Estradiol 06/17/20 [History Last Taken Unknown] Spironolactone 06/17/20 [History Last Taken Unknown] amoxicillin 875 mg-potassium clavulanate 125 mg tablet 1 tab PO BID #20 tabs 03/28/22 [Rx Last Taken Unknown] albuterol sulfate 90 mcg/actuation aerosol inhaler (Ventolin HFA) 1 - 2 puff inhalation Q4H PRN PRN Wheezing ##1 04/26/22 [Rx Last Taken Unknown] Allergy/AdvReac Type Severity Reaction Status Date / Time prednisone AdvReac Other Verified 08/20/22 02:59 Social History Smoking Status: Current every day smoker tobacco type: cigarettes ROS ROS ED Constitutional Constitutional ED: Denies chills, fever(s) or sweats Eyes Eyes: Denies change in vision ENT ENT ED: Denies dysphagia or sore throat Cardiovascular Cardiovascular: Denies chest pain, leg edema, palpitations or racing heartbeat Respiratory/Chest Respiratory/Chest: Denies cough, dyspnea or dyspnea on exertion Gastrointestinal Gastrointestinal: Denies abdominal pain, diarrhea, nausea or vomiting Genitourinary Genitourinary ED: Denies dysuria, hematuria or urinary frequency Musculoskeletal Musculoskeletal: Reports extremity pain and other Details: Right ring finger pain and swelling ; Denies back pain or neck pain Integumentary Denies rash or wounds Neurologic Neurologic: Denies headache(s), paresthesias or weakness EXAM Physical Exam Const Vital Signs: 08/20/22 02:54 Temperature 98.0 F Temperature Source Temporal Pulse Rate 99 Respiratory Rate 15 Blood Pressure 142/98 H Blood Pressure Mean 112 Pulse Ox 97 Oxygen Delivery Method Room Air Positive well nourished and well developed General Appearance ED: well developed and NAD HEENT Reports moist mucous membranes normocephalic and atraumatic Eyes conjunctivae normal General Eye ED: Yes normal appearance of both eyes Neck no lymphadenopathy and supple General: Negative for tenderness Chest Wall Chest: Negative for tenderness Resp normal respiratory effort and normal air movement Effort and Inspection: symmetric chest movement; Negative for respiratory distress Cardio regular rate, regular rhythm and no murmurs Peripheral Pulses: pulses 2+ throughout GI normal to inspection, nondistended, normoactive bowel sounds and non-tender Palpation: Negative for guarding or rebound tenderness present Back/Spine no CVA tenderness and no thoracic nor lumbar tenderness Extremity Extremity Narrative: Right hand ring finger: Base of nail ulnar aspect erythema slight fluctuance tender to palpation. No drainage. No streaking. General Extremety ED: Negative for edema or tenderness General Extremity: Negative for edema Neuro oriented x3 and no sensory deficits noted Sensorium / Orientation: awake and alert Skin no rashes or lesions noted and no wounds MDM MDM MDM Narrative Medical decision making narrative: Interventions / MDM: Differential diagnosis: Paronychia Diagnosis considered but do not suspect: No clinical felon My EKG interpretation: N/A Imaging independently reviewed and interpreted by myself: N/A External documents reviewed: N/A Test considered but not ordered:N/A ED course: Patient clinical paronychia with swelling. Incision and drainage discussed and performed. Definitive treatment performed. Wound care discussed. Outpatient follow-up. Ibuprofen given in the ED pre-discharge. Procedure note: Verbal consent. Incision and drainage. Normal sterile condi tions. 2 cc 1% lidocaine used for Gabriel metacarpal block ring finger after alcohol prep. Additional local 0.5 cc 1% lidocaine injection performed at the base of the nail ulnar aspect. Additional alcohol prep, 11 blade used to lift skin off laterally along with the base of the nail straight incision was performed bloody drainage no exudates. Cleanse with normal saline on 4 x 4. Dressing placed by myself. Patient tolerated procedure well. Re-evaluation: stable Disposition discussed with patient/family/significant other: Patient Case discussed with consulting clinician: N/A Discharge Plan Triage Chief Complaint: Other, Pain/Inj ED Provider: Sea Mcmanus Dx/Rx/DC Orders Clinical Impression: Paronychia of finger of right hand, Pain in finger of right hand Instructions: ED Paronychia of the Finger or Toe Prescriptions: No Action Estradiol Spironolactone amoxicillin-pot clavulanate 875-125 mg tablet 1 tab PO BID Qty: 20 0RF albuterol sulfate [Ventolin HFA] 90 mcg/actuation HFA aerosol inhaler 1 - 2 puff inhalation Q4H PRN PRN (Reason: Wheezing) Qty: 1 0RF Primary Care Provider: Johnny Bear Referrals: Johnny Bear MD [Primary Care Provider] - 1 Week if not improving Activity Restrictions/Additional Instructions: Status post incision and drainage of paronychia. Clean with soap and water. Bandage. Follow-up with your doctor in 1 week. Disposition Disposition: Home, Self Care Discharge Date/Time: 08/20/22 03:50
[2022-08-20] MEDS: Ibuprofen 600 MG Tablet PO (03:44)
== END 2022-08-20 03:50 | disposition home or self-care (01) ==
PROVIDERS: Emergency Provider Emergency Medicine; PCP Family Medicine; Visit Provider Emergency Medicine
DX: L03.011 Cellulitis of right finger (principal); M79.644 Pain in right finger(s); F17.210 Nicotine dependence, cigarettes, uncomplicated
CPT/HCPCS: 99283

== ENCOUNTER 2022-09-15 23:17 | Emergency (ER) | payer MEDICARE, MEDICAID, SELFPAY ==
[2022-09-15 23:18] VITALS: BP 129/75; PULSE 98; RESP 18; TEMP 36.6; O2SAT 99; BMI 30.3
--- NOTE | 2022-09-15 23:29 | EX.ED.DYSGE1 ---
HPI History of Present Illness Chief Complaint: Complaint [facility] Medical History Depression Home Medications Estradiol 06/17/20 [History Last Taken Unknown] Spironolactone 06/17/20 [History Last Taken Unknown] amoxicillin 875 mg-potassium clavulanate 125 mg tablet 1 tab PO BID #20 tabs 03/28/22 [Rx Last Taken Unknown] albuterol sulfate 90 mcg/actuation aerosol inhaler (Ventolin HFA) 1 - 2 puff inhalation Q4H PRN PRN Wheezing ##1 04/26/22 [Rx Last Taken Unknown] doxycycline hyclate 100 mg capsule 100 mg PO BID #14 caps 09/15/22 [Rx Last Taken Unknown] Allergy/AdvReac Type Severity Reaction Status Date / Time prednisone AdvReac Other Verified 09/15/22 23:18 Social History Smoking Status: Current every day smoker tobacco type: cigarettes EXAM Physical Exam Const Vital Signs: 09/15/22 23:18 Temperature 98 F Temperature Source Temporal Pulse Rate 98 Respiratory Rate 18 Blood Pressure 129/75 H Blood Pressure Mean 93 Pulse Ox 99 [facility] Narrative Medical decision making narrative: HISTORY OF PRESENT ILLNESS: 27-year-old male presents with painful urination. States went on for 1 day. Also states that patient always has painful urination although its worse today 09/10. Denies any fever. Denies abdominal pain. Denies any trouble with bowel movements. REVIEW OF SYSTEMS: Pertinent positives: Painful urination Pertinent negatives: Fever, abdominal pain, hematuria, flank pain, syncope, nausea vomiting PHYSICAL EXAM: Nursing triage notes reviewed, Vital signs reviewed Constitutional: please see mdm Lungs: Clear to auscultation, No wheezing or rales. No increased work of breathing, no conversational dyspnea, no accessory muscle use, no nasal flaring. No respiratory distress noted Heart: Regular rate and rhythm, No murmurs, No rubs and No gallops, 2+ distal pulses (radial, femoral, posterior tibial) in all extremities Abdomen: Soft, there is no tenderness, rigidity, rebound or guarding, no obvious peritoneal signs, no palpable pulsatile abdominal masses, no auscultated abdominal bruit : No CVAT MEDICAL DECISION MAKING: Chief Complaint: External records reviewed: No recent gonorrhea chlamydia testing Factors affecting care: History of depression ALL IMAGES (IF OBTAINED) HAVE BEEN PERSONALLY REVIEWED AND INTERPRETED BY MYSELF. UA, gonorrhea chlamydia, HIV and syphilis testing are pending at this time MDM Narrative: Patient was hemodynamically stable, afebrile, nontoxic-appearing. Abdominal exam was benign not consistent acute surgical process. I considered the following differential diagnosis: Gonorrhea, chlamydia, syphilis, HIV, UTI I obtained urine sample, urine gonorrhea chlamydia testing, HIV and syphilis testing. I instructed the patient to refrain from sexual activity until results of testing are known I gave empiric treatment per CDC guidance with ceftriaxone and doxycycline. Prescribe doxycycline for 7 days. The patient and/or family, caregivers express understanding. The patient and/or family, caregivers agrees with the plan. Total critical care time today provided was at least 0 minutes. This excludes separately billable procedures. Critical care time (if documented) is secondary to the patient having high probability of clinically significant/life threatening deterioration in the patient's condition which required my urgent intervention. Shared decision making: I will have a discussion with the patient and or visitors regarding risk/benefits of further testing or admission. They will be made aware of of the risk/benefits inherent in this decision they will be given the opportunity to voice understanding. Discharge Plan Triage Chief Complaint: Complaint ED Provider: Herminio Ricardo Dx/Rx/DC Orders Clinical Impression: Encounter for assessment of STD exposure, Dysuria Instructions: ED Dysuria, Uncertain Cause (Adult) Prescriptions: New doxycycline hyclate 100 mg capsule 100 mg PO BID Qty: 14 0RF No Action Estradiol Spironolactone amoxicillin-pot clavulanate 875-125 mg tablet 1 tab PO BID Qty: 20 0RF albuterol sulfate [Ventolin HFA] 90 mcg/actuation HFA aerosol inhaler 1 - 2 puff inhalation Q4H PRN PRN (Reason: Wheezing) Qty: 1 0RF Primary Care Provider: Johnny Bear Referrals: Johnny Bear MD [Primary Care Provider] - Activity Restrictions/Additional Instructions: Thank you for trusting us with your care today! Please take Tylenol (2 pills, 650 mg), ibuprofen (2 pills, 400 mg) every 6 hours as needed for pain and fever control. Please take doxycycline as prescribed. Please refrain from sexual activity until results of STD testing are known. Please return to the emergency department if your symptoms change or worsen. Please follow with your primary care physician for further outpatient evaluation and management. Disposition Disposition: Home, Self Care
[2022-09-15 23:58] LABS: Color, Urine Yellow (Yellow); Glucose, Dipstick Normal (Normal); Ketone-Dipstick 15 mg/dl (Negative); Leukocyte Esterase-Dipstick 100 /ul (Negative); Nitrite-Dipstick Negative (Negative); Occult Blood-Urine 50 /ul (Negative); Protein-Dipstick 30 mg/dl (Negative); Urine Clarity Sl. Cloudy (Clear); Urine Urobilinogen 4 mg/dl (Normal)
[2022-09-16] MEDS: Doxycycline 100 MG CAPSULE PO (00:01)
[2022-09-16 00:04] LABS: Urine Bilirubin Dipstick 1 mg/dL (Negative)
[2022-09-16] MEDS: Ceftriaxone 1 GM Vial IM (00:05)
[2022-09-16 00:10] LABS: Amorphous Sediment 2+; Bacteria 2+ /hpf (None Seen); Calcium Oxalate Crystals Ur RARE /hpf (<or=2+); Mucous, Urine 1+ /hpf (<or=2+); Red Blood Cells-Urine 0-5 SEEN /hpf (0-5); Squamous Epithelial Cells - UA 0-5 SEEN /hpf (0-5); White Blood Cells 0-5 SEEN /hpf (0-5)
[2022-09-16 02:04] LABS: Syphilis Antibodies Nonreactive
[2022-09-23 00:33] LABS: HIV - WCH Non-Reactive (Nonreactive)
== END 2022-09-16 00:33 | disposition home or self-care (01) ==
PROVIDERS: Emergency Provider Emergency Medicine; PCP Family Medicine; Visit Provider Emergency Medicine
DX: R30.0 Dysuria (principal); F17.210 Nicotine dependence, cigarettes, uncomplicated; Z11.3 Encounter for screening for infections with a predominantly sexual mode of transmission
CPT/HCPCS: 81001; 86703; 86780; 87086; 87088; 87491; 87591; 96372; 99283

== ENCOUNTER 2022-12-07 23:17 | Emergency (ER) | payer MEDICARE, MEDICAID, SELFPAY ==
[2022-12-07 23:18] VITALS: BP 124/53; PULSE 79; RESP 16; TEMP 36.4; O2SAT 99; BMI 30.2
--- NOTE | 2022-12-08 00:06 | EX.ED.VIS.EY ---
HPI History of Present Illness Chief Complaint: Eye Problem Detail of Chief Complaint: Following left upper eyelid for 4 to 5 days. Informant: patient Onset/Context/Timing Location: Left Eye Onset: Days Context: Gradual Onset Timing: Continuous Current Severity: Mild Maximum Severity: Mild Associated Symptoms Associated Symptoms - Eyes: Eyelid swelling; Negative for Burning, Crusting, Drainage, Foreign body sensation, Itching, Matting, Pain, Photophobia or Redness History of injury: No Visual correction: Glasses Narrative Narrative: 27-year-old male complaint discomfort and mild swelling in his left upper eyelid for 4 to 5 days. No trauma or injury. Wears glasses. No contacts. No prior eye surgery. No prior history. Prior similar symptoms: No Recent Illness/Hospitalization: No PFSH PFSH Medical History Depression Home Medications Estradiol 06/17/20 [History Last Taken Unknown] Spironolactone 06/17/20 [History Last Taken Unknown] amoxicillin 875 mg-potassium clavulanate 125 mg tablet 1 tab PO BID #20 tabs 03/28/22 [Rx Last Taken Unknown] albuterol sulfate 90 mcg/actuation aerosol inhaler (Ventolin HFA) 1 - 2 puff inhalation Q4H PRN PRN Wheezing ##1 04/26/22 [Rx Last Taken Unknown] doxycycline hyclate 100 mg capsule 100 mg PO BID #14 caps 09/15/22 [Rx Last Taken Unknown] Allergy/AdvReac Type Severity Reaction Status Date / Time prednisone AdvReac Other Verified 12/07/22 23:17 Social History Smoking Status: Current every day smoker tobacco type: cigarettes ROS ROS ED ROS Narrative Denies recent illness. Review of Systems ROS Unobtainable: Denies due to encephalopathy Constitutional Constitutional ED: Denies chills or fever(s) Eyes Eyes: Denies blurry vision, change in vision or diplopia ENT ENT ED: Denies ear pain Cardiovascular Cardiovascular: Denies chest pain Respiratory/Chest Respiratory/Chest: Denies cough or dyspnea Gastrointestinal Gastrointestinal: Denies abdominal pain or constipation Genitourinary Genitourinary ED: Denies dysuria or hematuria Musculoskeletal Musculoskeletal: Denies arthralgias or back pain Integumentary Denies abscess or Abrasions Neurologic Neurologic: Denies headache(s) Psychiatric Psychiatric: Denies anxiety or depression Endocrine Endocrinology: Denies polydipsia or polyphagia Hematologic/Lymphatic Hematologic/Lymphatic: Denies easy bleeding, easy bruising or lymphadenopathy Allergic/Immunologic Allergic/Immunologic ED: Denies mouth swelling or tongue swelling EXAM Physical Exam Narrative Exam Narrative: 27-year-old male no acute distress. HEENT exam left upper eyelid mildly swollen primarily in the midportion. Consistent with an early stye. Nothing to drain. He can open and close both eyes. Extraocular motions are intact. The left eye is not injected. Nor swollen. There is no orbital or periorbital cellulitis. No preauricular lymphadenopathy. The eye is not injected. There is no drainage or watering. He denies any visual change. Otherwise exam unremarkable. Const Vital Signs: 12/07/22 23:18 Temperature 97.5 F L Temperature Source Temporal Pulse Rate 79 Respiratory Rate 16 Blood Pressure 124/53 H Blood Pressure Mean 76 Pulse Ox 99 Positive well nourished and well developed; Negative for cachectic, contractures or unkempt General Appearance ED: well developed and NAD; Negative for unkempt, cachectic or contractures Nutritional Appearance: Negative for cachectic HEENT atraumatic; Negative for trauma or tenderness Nose: external nose normal Neck no lymphadenopathy, supple and no JVD General: Negative for tenderness Resp normal respiratory effort, no retractions, no use of accessory muscles and clear to auscultation bilaterally Cardio regular rate, regular rhythm, S1 normal heart sound, S2 normal heart sound and no murmurs GI non-tender, non-distended and no masses Auscultation: normoactive bowel sounds Palpation: soft Back/Spine no CVA tenderness General Back: Negative for CVA tenderness Extremity normal to inspection General Extremety ED: Negative for edema General Extremity: Negative for edema Neuro oriented x3 and CN's II-XII intact bilaterally Sensorium / Orientation: alert, oriented to person, oriented to place and oriented to time Motor Exam: strength 5/5 throughout Psych Appearance: Negative for unkempt Attitude: No agitated Mood & Affect: Negative for depressed, anxious or tearful Skin no wounds Lesions: no lesions Rashes: no rashes Trauma: abrasion Image ED - Eye Diagram: 1. Left upper eyelid stye. MDM MDM MDM Narrative Medical decision making narrative: Has an early left upper eyelid stye. Motrin and Tylenol for pain. Warm compresses. Follow-up if not improving. History & Record Review Discussion w/independent historian: Patient Additional record(s) reviewed:: Prior inpatient record, Prior outpatient record, Prior ED visit and Prior labs Discharge Plan Triage Chief Complaint: Eye Problem ED Provider: Rogelio Torres Dx/Rx/DC Orders Clinical Impression: Stye Instructions: ED Sty Prescriptions: No Action Estradiol Spironolactone amoxicillin-pot clavulanate 875-125 mg tablet 1 tab PO BID Qty: 20 0RF albuterol sulfate [Ventolin HFA] 90 mcg/actuation HFA aerosol inhaler 1 - 2 puff inhalation Q4H PRN PRN (Reason: Wheezing) Qty: 1 0RF doxycycline hyclate 100 mg capsule 100 mg PO BID Qty: 14 0RF Primary Care Provider: Johnny Bear Referrals: Johnny Bear MD [Primary Care Provider] - Abraham Banda MD [Med Staff - Active Staff] - 1 Week if not improving Activity Restrictions/Additional Instructions: Start your left upper eyelid. Warm compresses 4-5 times a day for 20 to 30 minutes each time. This should progressively get better over the next week. Motrin and/or Tylenol for pain. Follow-up if not improving. Disposition Disposition: Home, Self Care
== END 2022-12-08 00:17 | disposition home or self-care (01) ==
PROVIDERS: Emergency Provider Emergency Medicine; PCP Family Medicine; Visit Provider Emergency Medicine
DX: H00.014 Hordeolum externum left upper eyelid (principal); F17.210 Nicotine dependence, cigarettes, uncomplicated
CPT/HCPCS: 99282

== ENCOUNTER 2022-12-10 11:43 | Emergency (ER) | payer MEDICARE, MEDICAID, SELFPAY ==
[2022-12-10 11:45] VITALS: BP 132/78; PULSE 73; RESP 16; TEMP 36.3; O2SAT 99
--- NOTE | 2022-12-10 11:53 | CM.ED ---
Social Work SW contacted by [facility] Crisis staff to report patient is coming to [facility] ED for SI. Patient was assessed by crisis and recommended for psychiatric hospitalization due to patient having a plan and intent. Patient needs medical clearance to assist with referral. SW to fax medical clearance to [facility] once complete. Care team updated. Plan: medical clearance, [facility] Crisis to refer for psychiatric hospitalization Valerie PALACIOS, NGUYEN
--- NOTE | 2022-12-10 12:20 | EDS_ITS ---
HPI HPI - Psych History of Present Illness Chief Complaint: Suicidal Informant: patient Narrative Narrative: Patient is undergoing a lot of stress due to people in his immediate environment, and has been suicidal with a plan to cut her wrists/forearms, spoke with and evaluated by crisis, has been deemed appropriate for inpatient placement, and was referred here for medical clearing so that he may be placed. He/she denies any recent illness or injury. [facility] Medical History (Updated 12/10/22 @ 12:[address] Ulysses Mcdonald MD) Depression Transgender person on hormone therapy Home Medications Estradiol 06/17/20 [History Last Taken Unknown] Spironolactone 06/17/20 [History Last Taken Unknown] amoxicillin 875 mg-potassium clavulanate 125 mg tablet 1 tab PO BID #20 tabs 03/28/22 [Rx Last Taken Unknown] albuterol sulfate 90 mcg/actuation aerosol inhaler (Ventolin HFA) 1 - 2 puff inhalation Q4H PRN PRN Wheezing ##1 04/26/22 [Rx Last Taken Unknown] doxycycline hyclate 100 mg capsule 100 mg PO BID #14 caps 09/15/22 [Rx Last Taken Unknown] Allergy/AdvReac Type Severity Reaction Status Date / Time prednisone AdvReac Other Verified 12/10/22 11:45 Social History Smoking Status: Current every day smoker tobacco type: cigarettes ROS ROS ED Constitutional Constitutional ED: Denies chills or fever(s) Eyes Eyes: Denies change in vision or diplopia ENT ENT ED: Denies rhinorrhea or sore throat Cardiovascular Cardiovascular: Denies chest pain or palpitations Respiratory/Chest Respiratory/Chest: Denies cough or dyspnea Gastrointestinal Gastrointestinal: Denies abdominal pain, diarrhea, nausea or vomiting Genitourinary Genitourinary ED: Denies dysuria or hematuria Musculoskeletal Musculoskeletal: Denies back pain or neck pain Integumentary Denies abscess or rash Neurologic Neurologic: Denies headache(s), paresthesias or weakness Psychiatric Psychiatric: Reports depression, suicidal ideation and suicidal thoughts; Denies homicidal ideation EXAM Physical Exam Const Vital Signs: 12/10/22 11:45 Temperature 97.4 F L Temperature Source Temporal Pulse Rate 73 Respiratory Rate 16 Blood Pressure 132/78 H Blood Pressure Mean 96 Pulse Ox 99 Oxygen Delivery Method Room Air Positive well nourished and well developed General Appearance ED: well developed and NAD HEENT Reports moist mucous membranes normocephalic and atraumatic Eyes PERRL and EOMs intact bilaterally General Eye ED: Negative for scleral icterus Neck no lymphadenopathy and supple Resp normal respiratory effort and clear to auscultation bilaterally Cardio no murmurs Rate: regular rate Rhythm: regular rhythm GI non-tender and non-distended Auscultation: normoactive bowel sounds Palpation: soft Back/Spine no CVA tenderness and normal ROM Extremity normal to inspection General Extremety ED: Negative for edema General Extremity: Negative for edema Neuro oriented x3, CN's II-XII intact bilaterally, no sensory deficits noted and gait normal Sensorium / Orientation: alert Motor Exam: strength 5/5 throughout Psych mental status grossly normal, thought process normal, cooperative, activity/motor behavior normal and denies homicidal ideation Mood & Affect: depressed Thought Content: suicidality Skin Lesions: no lesions Rashes: no rashes MDM MDM MDM Narrative Medical decision making narrative: Labs and toxicology obtained, patient is medically clear. Those results are noted. She has been cooperative, discussed with mental health for continued work on placement. History & Record Review Additional record(s) reviewed:: Prior outpatient record ( eval prior to arrival) Lab Data Attestation: I reviewed the patient's lab results. Labs: Laboratory Results - last 24 hr 12/10/22 12/10/22 11:57 12:06 WBC 13.5 H RBC 4.98 Hgb 16.2 Hct 47.0 MCV 94.4 H MCH 32.5 H MCHC 34.5 RDW Std Deviation 43.3 RDW Coeff of Naeem 12.5 Plt Count 248 MPV 10.3 Immature Gran % (Auto) 0.900 Neut % (Auto) 75.4 H Lymph % (Auto) 17.1 L [place] % (Auto) 4.7 Eos % (Auto) 1.4 Baso % (Auto) 0.5 Absolute Neuts (auto) 10.2 H Absolute Lymphs (auto) 2.31 Nucleated RBC % 0 Sodium 140 Potassium 3.8 Chloride 108 H Carbon Dioxide 26.0 Anion Gap 6 BUN 7 Creatinine 0.83 Estim Creat Clear Calc 124.99 Est GFR (MDRD) Af Amer 143 Est GFR (MDRD) Non-Af 118 BUN/Creatinine Ratio 8.5 L Glucose 89 Calcium 9.0 Total Bilirubin 0.30 AST 9 L ALT 25 Alkaline Phosphatase 82 Total Protein 7.3 Albumin 4.0 Globulin 3.3 Albumin/Globulin Ratio 1.2 Urine Opiates Screen NEGATIVE Urine Methadone Screen NEGATIVE Ur Barbiturates Screen NEGATIVE Ur Phencyclidine Scrn NEGATIVE Ur Amphetamines Screen NEGATIVE MDMA (Ecstasy) Screen NEGATIVE U Benzodiazepines Scrn NEGATIVE Urine Cocaine Screen NEGATIVE U Cannabinoids Screen POSITIVE H Ur Drug Screen Comment Ethyl Alcohol < 3.0 Management 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
[2022-12-10 12:21] LABS: Absolute Lymphocyte Count 2.31 X10^3/uL (0.83-4.51); Absolute Neutrophil Count 10.2 X10^3/uL (2.0-7.7); Basophil# 0.07 X10^3/uL; Basophil% 0.5 % (0-1); Eosinophil# 0.19 X10^3/uL; Eosinophils% 1.4 % (0-5); Hemoglobin 16.2 g/dL (13.0-16.5); Lymphocyte # 2.31 X10^3/ul (0.83-4.51); Lymphocyte % 17.1 % (19-41); Mean Corp Hgb Conc 34.5 g/dL (32-36); Mean Corpuscular Hgb 32.5 pg (27.0-32.0); Mean Corpuscular Volume 94.4 fL (80-94); Mean Platelet Vol. 10.3 fl (6.2-12.0); Monocyte# 0.63 X10^3/uL; Monocyte% 4.7 % (0-10); NRBC Flagged by Analyzer 0 % (0-5); Neutrophil # 10.16 X10^3/uL (2.7-7.7); Neutrophil % 75.4 % (47-70); Platelet Count 248 K/mm3 (150-450); RBC Distribution Width CV 12.5 % (11.6-14.6); RBC Distribution Width SD 43.3 fl (35.1-43.9); Red Blood Count 4.98 M/mm3 (4.6-6.2); White Blood Count 13.5 K/mm3 (4.4-11.0)
[2022-12-10 12:37] LABS: Alcohol, Blood (Medical)-Serum < 3.0 mg/dL
[2022-12-10 12:42] LABS: ALB/GLOB Ratio 1.2 RATIO (0.9-2.4); AST(SGOT) 9 U/L (15-37); Alanine Aminotransfer ALT/SGPT 25 U/L (16-61); Alkaline Phosphatase 82 U/L (45-117); Anion Gap 6 (5-15); BUN 7 mg/dL (7-18); BUN/Creat Ratio 8.5 RATIO (10-20); Chloride 108 mmol/L (98-107); Creatinine, Serum 0.83 mg/dL (0.70-1.30); EST Glomerular Filtration Rate 118 mL/min (>60); Est Glom Filt Rate - Afr Amer 143 mL/min (>60); Estimated Creatinine Clearance 124.99 ml/min; Globulin 3.3 g/dL (2.2-4.2); Glucose 89 mg/dL (74-106); Potassium 3.8 mmol/L (3.5-5.1); Protein, Total 7.3 g/dL (6.4-8.2); Sodium Level 140 mmol/L (136-145)
[2022-12-10 12:46] LABS: Amphetamine Urine VISTA NEGATIVE (<1000 ng/mL); Barbiturate Urine VISTA NEGATIVE (< 200 ng/mL); Benzodiazepine Urine VISTA NEGATIVE (< 200 ng/mL); Cocaine Urine VISTA NEGATIVE (< 300 ng/mL); Ecstacy Urine VISTA NEGATIVE (< 500 ng/mL); Methadone Urine VISTA NEGATIVE (< 300 ng/mL); PCP Urine VISTA NEGATIVE (< 25 ng/mL); THC Urine VISTA POSITIVE (< 50 ng/mL); Vista UDS pH Range 5
--- NOTE | 2022-12-10 13:03 | CM.ED ---
Addendum entered by Valerie Ayala 12/10/22 15:03: Patient was accepted to [facility]. ELENO faxed copy of pink slips to [facility]. Plan: [facility] NGUYEN Serna Addendum entered by Valerie Ayala 12/10/22 13:37: SW contacted [facility] to ensure they received medical clearance documents. Crisis staff Desiree confirmed fax was received and patient was being referred to [facility] and [facility]. Plan: referrals pending at [facility] and [facility] NGUYEN Serna Original Note: Social Work SW received copy of patient's assessment completed by [facility]. SW added a copy to patient's chart and provided a copy to MD Mcdonald. SW faxed medical clearance documents to [facility] to assist with referral for psychiatric placement. Plan: [facility] to refer for inpatient psychiatric hospitalization NGUYEN Serna
[2022-12-10 14:20] VITALS: BP 128/74; PULSE 73; RESP 18; O2SAT 97
--- NOTE | 2022-12-10 14:34 | NURSING ---
ATTEMPTED TO CALL [facility] TO GIVE PATIENT REPORT. PHONE ANSWERED BY [employer] WHO INFORMED THIS RN THAT PATIENT'S NURSE AT [facility] IS NOT AVAILABLE RIGHT NOW AND THEY WILL CALL WHEN THEY ARE READY FOR REPORT.
[2022-12-10 14:38] VITALS: BP 128/74; PULSE 73; RESP 18; O2SAT 97
== END 2022-12-10 14:52 ==
PROVIDERS: Emergency Provider Emergency Medicine; PCP Family Medicine; Visit Provider Emergency Medicine
DX: R45.851 Suicidal ideations (principal); F17.210 Nicotine dependence, cigarettes, uncomplicated
CPT/HCPCS: 36415; 80053; 80307; 82077; 85025; 87811; 99284